=== PATIENT | female | born 1995 | race Caucasian/White ===

== ENCOUNTER 2017-03-17 14:31 | Emergency (ER) | payer SELFPAY ==
[~2017-03-17] VITALS: Ht 162.6 cm; Wt 86.2 kg
[2017-03-17 14:36] VITALS: BP 115/74
[2017-03-17 14:53] LABS: APPEARANCE,URINE Hazy (CLEAR); BILIRUBIN,URINE Negative (NEGATIVE); BLOOD, URINE Trace-intact Ery/uL (NEGATIVE); COLOR,URINE Dark Yellow (YELLOW); KETONES,URINE Negative (NEGATIVE); LEUKOCYTE ESTERASE ,URINE Small (NEGATIVE); NITRITE, URINE Positive (NEGATIVE); PROTEIN,URINE Negative (NEGATIVE); UGLUCOSE 100 MG/DL mg/dL (NEGATIVE)
[2017-03-17] MEDS ORDERED: PHENAZOPYRIDINE HCL 200 MG TABLET ONE (14:58)
[2017-03-17] MEDS ORDERED: PHENAZOPYRIDINE HCL 200 MG TABLET PO ONE (15:00)
[2017-03-17 15:01] LABS: WBC,URINE 80-100 /HPF (0-3)
[2017-03-17 15:02] LABS: BACTERIA,URINE Few /HPF (None Seen); SQUAMOUS EPITHELIAL CELL,UR Few /HPF (None Seen)
[2017-03-17] MEDS ORDERED: CIPROFLOXACIN HCL 500 MG TABLET ONE (15:18)
[2017-03-17] MEDS ORDERED: CIPROFLOXACIN HCL 250 MG TABLET PO ONE (15:30)
== END 2017-03-17 15:30 | disposition home or self-care (01) ==
LOC: ER 14:32
DX: N39.0 Urinary tract infection, site not specified (principal)
CPT/HCPCS: 81001; 84703; 87077; 87086; 87186; 99284; A4606; Z7610; 81000-TC